=== PATIENT | male | born 1995 | race Caucasian/White ===

== ENCOUNTER → 2025-05-08 | Emergency (ER) | payer OTHER ==
[~2025-05-08] VITALS: Ht 172.7 cm; Wt 68.0 kg
[~2025-05-08] MED LIST: DIVA-158 PO; DIVA125C5 PO; LISD30CA2 PO; VALPROATE SODIUM 500 MG/5 ML VIAL IV ONE
[2025-05-08 19:44] LABS: PLATELET COUNT (AUTO) 315 K/uL (152-348); RED BLOOD CELL COUNT(AUTO) 4.53 MIL/uL (4.06-5.63); RED CELL DISTRIBUTION WIDTH 13.7 % (12.1-16.2); WHITE BLOOD COUNT (AUTO) 11.5 K/uL (3.6-10.2)
[2025-05-08 19:50] LABS: CREATININE 1.2 mg/dL (0.6-1.3); SODIUM SERUM 135.0 mmol/L (136-145); UREA NITROGEN, BLOOD 9.0 mg/dL (7-18)
[2025-05-08 19:55] LABS: ASPARTATE AMINOTRANSFERASE 17.0 U/L (15-37); TOTAL PROTEIN, SERUM 7.6 g/dL (6.4-8.2)
[2025-05-08] MEDS: IV NORMAL SALINE 1000 ML BAG IV ONE (19:56)
[2025-05-08] MEDS: VALPROATE SODIUM 500 MG/5 ML VIAL IV ONE (19:59)
[2025-05-08 21:03] LABS: CREATININE 1.0 mg/dL (0.6-1.3); SODIUM SERUM 134.0 mmol/L (136-145); UREA NITROGEN, BLOOD 9.0 mg/dL (7-18)
[2025-05-08 21:19] VITALS: BP 116/83
[2025-05-08 21:31] VITALS: BP 116/83; O2SAT 100
== END | disposition home or self-care (01) ==
LOC: ER 19:30
DX: G40.909 Epilepsy, unspecified, not intractable, without status epilepticus (principal); Z79.899 Other long term (current) drug therapy
CPT/HCPCS: 99291; 96374; 96361; 80076; 80048 ×2; 80164; 85025; 36415; 93005; 80299; J3490; A4606; A4663